=== PATIENT | male | born 1995 | race African-American/Black ===

== ENCOUNTER 2025-05-29 04:39 | Observation (INO) | payer OTHER, SELFPAY ==
[2025-05-29] VITALS (16 sets, daily range): BP systolic 98–169; BP diastolic 56–112; BMI 25.9
--- NOTE | 2025-05-29 01:06 | ED.GENMED ---
History of Present Illness
<Nely Crawford MD, Resident - Last Filed: 05/29/25 02:52>
General
Chief Complaint: Abdominal Pain
Source: patient
Exam Limitations: none
Time Seen by Provider: 05/29/25 01:00
Nursing documentation reviewed up to this point in time: agreed with
History of Present Illness
History of Present Illness:
29-year-old M with no significant past medical history presents with acute right lower quadrant pain.
Patient states that around 5 PM tonight he started having abdominal pain in the right lower quadrant. He attributed it to gas/constipation and waited. However, pain continued to worsen over time, becoming severe by 10 PM. At that point, patient
began putting. Did not take anything for pain. Denies any hematemesis, denies any diarrhea. Denies any fevers chills at home. Denies any prior abdominal surgeries. Pain is localized in the right lower quadrant.Patient in severe pain on exam,
hyperventilating and clutching abdomen.
Past History
<Nely Crawford MD, Resident - Last Filed: 05/29/25 02:52>
Past History
ED Past Medical History: None
ED Past Surgical History: None
Review of Systems
<Nely Crawford MD, Resident - Last Filed: 05/29/25 02:52>
Review of Systems
All Other Systems: ROS reviewed and negative except as documented in HPI and ROS
Constitutional: Reports no symptoms
EENT: Reports no symptoms
Respiratory: Reports no symptoms
Cardiac: Reports no symptoms
ABD/GI: Reports abdominal pain, nausea and vomiting
: Reports no symptoms
Musculoskeletal: Reports no symptoms
Skin: Reports no symptoms
Neurological: Reports no symptoms
Psychiatric: Reports no symptoms
Phy Exam
<Nely Crawford MD, Resident - Last Filed: 05/29/25 02:52>
General Physical Exam
General Presentation: severe distress
General age: appears stated age
General Skin: warm and dry
General Habitus: normal
General Mental: alert
General Hydration: appears well hydrated
Cardiovascular Exam
Cardiovascular Exam: no edema and tachycardia
Pulmonary Exam
Pulmonary Exam: no stridor and no wheezing
Respiratory Effort: hyperventilation
Gastrointestinal Exam
Gastrointestinal Exam: non distended, guarding and tender (tender worst in RLQ but abd diffusely tender to light palpation )
Neurological Exam
Neurological Exam: alert
Musculoskeletal Exam
Musculoskeletal Exam: full ROM
Skin Exam
Skin Exam: normal color
Psychiatric Exam
Psychiatric Exam: agitated
Course
<Nely Crawford MD, Resident - Last Filed: 05/29/25 02:52>
Orders/Labs/Results
Orders:
Orders
05/29/25 01:03
0.9% Sodium Chloride 1000 ml [Nss] 1,000 ml IV BOLUS
HYDROmorphone [Dilaudid] 0.5 mg IV NOW STA
05/29/25 01:06
CT Abd/pelvis W Iv Cont Urgent
Comment:
Reason For Exam: RLQ pain
Ondansetron Injectable [Zofran] 4 mg IV NOW STA
05/29/25 01:30
Ketorolac [Toradol] 15 mg IV NOW STA
05/29/25 01:57
Complete Blood Count/With Diff Urgent
Comprehensive Metabolic Panel Urgent
05/29/25 02:51
Piperacillin/Tazo 4.5 Gram [Zosyn] 4.5 gram in 100 ml IV NOW
05/29/25 02:52
Consult Surgery [SURGICAL CONSULT] Urgent
Consulting Provider: Jarek Cruz
Was physician already notified: Yes
Reason for consult: appendicitis
05/29/25 Breakfast
NPO
Allow oral meds: No
Allow clear liquids: Sips of Clears
Abnormal Lab Results
05/29/25
01:57
WBC 12.8 H 10^3/uL
(4.8-10.8)
MPV 11.2 H fL
(7.4-10.4)
Absolute Neuts (auto) 11.8 H 10^3/uL
(1.4-6.5)
Absolute Lymphs (auto) 0.5 L 10^3/uL
(1.2-3.4)
Neutrophils % 92.3 H %
(42.2-75.2)
Lymphocytes % 3.6 L %
(20.5-51.1)
Glucose 158 H mg/dl
(70-99)
Albumin 5.2 H g/dl
(3.5-5.0)
05/29/25 01:57
05/29/25 01:57
Vital Signs
Initial and Last Documented VS:
Initial Vital Signs
Temp Pulse Resp BP Pulse Ox
97.6 F 80 28 98/70 100
05/29/25 00:54 05/29/25 00:54 05/29/25 00:54 05/29/25 00:54 05/29/25 00:54
Last Documented Vital Signs
Temp Pulse Resp BP Pulse Ox
97.6 F 80 28 98/70 100
05/29/25 00:54 05/29/25 00:54 05/29/25 00:54 05/29/25 00:54 05/29/25 01:15
<Krissy Yeager, DO - Last Filed: 05/29/25 02:53>
Orders/Labs/Results
Orders:
Orders
05/29/25 01:03
0.9% Sodium Chloride 1000 ml [Nss] 1,000 ml IV BOLUS
HYDROmorphone [Dilaudid] 0.5 mg IV NOW STA
05/29/25 01:06
CT Abd/pelvis W Iv Cont Urgent
Comment:
Reason For Exam: RLQ pain
Ondansetron Injectable [Zofran] 4 mg IV NOW STA
05/29/25 01:30
Ketorolac [Toradol] 15 mg IV NOW STA
05/29/25 01:57
Complete Blood Count/With Diff Urgent
Comprehensive Metabolic Panel Urgent
05/29/25 02:51
Piperacillin/Tazo 4.5 Gram [Zosyn] 4.5 gram in 100 ml IV NOW
05/29/25 02:52
Consult Surgery [SURGICAL CONSULT] Urgent
Consulting Provider: Jarek Cruz
Was physician already notified: Yes
Reason for consult: appendicitis
05/29/25 Breakfast
NPO
Allow oral meds: No
Allow clear liquids: Sips of Clears
Abnormal Lab Results
05/29/25
01:57
WBC 12.8 H 10^3/uL
(4.8-10.8)
MPV 11.2 H fL
(7.4-10.4)
Absolute Neuts (auto) 11.8 H 10^3/uL
(1.4-6.5)
Absolute Lymphs (auto) 0.5 L 10^3/uL
(1.2-3.4)
Neutrophils % 92.3 H %
(42.2-75.2)
Lymphocytes % 3.6 L %
(20.5-51.1)
Glucose 158 H mg/dl
(70-99)
Albumin 5.2 H g/dl
(3.5-5.0)
05/29/25 01:57
05/29/25 01:57
Vital Signs
Initial and Last Documented VS:
Initial Vital Signs
Temp Pulse Resp BP Pulse Ox
97.6 F 80 28 98/70 100
05/29/25 00:54 05/29/25 00:54 05/29/25 00:54 05/29/25 00:54 05/29/25 00:54
Last Documented Vital Signs
Temp Pulse Resp BP Pulse Ox
97.6 F 80 28 98/70 100
05/29/25 00:54 05/29/25 00:54 05/29/25 00:54 05/29/25 00:54 05/29/25 01:15
<Nely Crawford MD, Resident - Last Filed: 05/29/25 02:52>
MDM/Problems Addressed
Differential Diagnosis Includes:
Presentation most concerning for acute appendicitis
Potential for rupture, given abrupt worsening of patient's pain accompanied by emesis after more moderate pain preceding, mild guarding on exam, patient in severe distress
However, patient hemodynamically stable, may be contained/unruptured
Differential also includes:
Acute SBO/volvulus, less likely given abdomen not distended on exam
Pancreatitis, less likely given lower abdomen localization rather than upper abdomen without radiation to the back
Cholecystitis, less likely given localization to lower right quadrant
Perforated stercoral colitis, unlikely given lack of preceding history of constipation
MDM/Problems Addressed:
-CBC, CMP
-IVF bolus
-NPO
-Analgesia (IV toradol 15mg)
-Zofran [address] abdomen/pelvis with IV contrast
<Nely Crawford MD, Resident - Last Filed: 05/29/25 02:52>
*Pulse Oximetry
SaO2: 100
Patient hypoxic: no
*Critical Care Note
Total Time (30-74mins, 75-104mins- exclusive of procedures): Not Applicable
<Nely Crawford MD, Resident - Last Filed: 05/29/25 02:52>
Update Note
Update Note:
Leukocytosis 12.8 WBC
2:45am
CT ap with acute appendicitis with appendicolith
Will start Zosyn & admit to surgery service
ED Attending Note
<Nely Crawford MD, Resident - Last Filed: 05/29/25 02:52>
-
Portions of this chart may have been created with voice recognition software.� Occasional wrong word or��sound alike� substitutions may have occurred due to the inherent limitations of voice recognition software.
<Krissy Yeager DO - Last Filed: 05/29/25 02:53>
ED Attending Note
Patient seen and examined by attending physician: Yes
I performed the substantive portion of visit, reviewed & personally made and approve the management plan that is documented in note by myself or ELA.: Yes
I performed a history and physical exam of patient and discussed management with resident, I reviewed resident's note and agree with documented findings and plan of care.: Yes
ED Attending Note:
29-year-old male without significant past medical history presenting for acute onset of abdominal pain. Patient reports a few hours prior to arrival, started to have right lower quadrant abdominal pain with associated nausea and vomiting. Reports
being in his usual state of health prior to the symptoms. Denies any surgical history. Denies fever or sick contacts. Denies any diarrhea. Denies any marijuana use. Vital signs are normal.
On exam, patient is in no acute distress, however slightly uncomfortable secondary to his symptoms. On abdominal exam, focal right lower quadrant tenderness to the abdomen with primary concern for acute appendicitis. Plan for laboratory analysis
and CT abdominal imaging. Will treat with IV fluids and Toradol as well as Zofran and reassess
02:50 -patient's labs significant for leukocytosis. CT consistent with acute appendicitis. Did discuss with surgery. Antibiotics ordered. Plan for admission
Discharge Plan
Departure
Patient Disposition: Admit
Date of Disposition: 05/29/25
Time of Disposition: 02:50
Admit to: Med/Surg
Admit to doctor: Anthony
Presentation/result/management discussed w/ accepting MD/DO: General surgery
Patient with high blood pressure during this ER visit?: No
Condition: Fair
Covid-19: Not Applicable
Discharge Problem:
Acute appendicitis
Referrals:
NONE,* [Family Provider, Internal Medicine]
Interventions
Interventions:
*Risk Screen - Suicide Last Done: 05/29/25 01:44
*General Assessment Last Done: 05/29/25 01:44
*Neglect/Abuse Screening Last Done: 05/29/25 01:44
*ED COVID-19 Vaccine History Last Done: 05/29/25 01:44
*ED Influenza Vaccine History Last Done: 05/29/25 01:44
[facility] Fall Risk Assessment Tool Last Done: 05/29/25 00:52
RT-Gpezsw-[id number] Assessment Last Done: 05/29/25 01:46
Discharge Date and Time
Print Language: LAO
[2025-05-29] MEDS: ZOFRAN 4 MG IV ×2 (01:48→06:06)
[2025-05-29] MEDS: NSS 1000 IV ×2 (01:49→05:09)
[2025-05-29] MEDS: TORADOL 15 MG IV (01:53)
[2025-05-29 02:03] LABS: Hematocrit 45.3 % (39.0-52.0); Hemoglobin 15.5 g/dL (13.0-18.0); Mean Corp Hgb Conc. 34.2 g/dL (33.0-37.0); Mean Corpuscular Volume 87.6 fL (80.0-94.0); Nucleated Red Blood Cells % 0 % (-); Platelet Count 154 10^3/uL (130-400); Red Cell Dist. Width 12.2 % (11.5-14.5)
[2025-05-29 02:35] LABS: ALT (SGPT) 23 U/L (0-50); AST (SGOT) 33 U/L (17-59); Albumin 5.2 g/dl (3.5-5.0); Alkaline Phosphatase 65 U/L (38-126); Blood Urea Nitrogen 15 mg/dl (9-20); Calcium 9.9 mg/dl (8.4-10.2); Carbon Dioxide 27 mmol/L (22-30); Chloride 98 mmol/L (98-107); Estimated Creatinine Clearance 117 ml/min; Glucose 158 mg/dl (70-99); Potassium 4.0 mmol/L (3.5-5.1); Sodium 137 mmol/L (135-145); Total Protein 8.2 g/dl (6.3-8.2); eGFR > 60.00
[2025-05-29] MEDS: ZOSYN 100 IV (03:28)
[2025-05-29] MEDS: MORPHINE SULFATE 4 MG IV (04:07)
--- NOTE | 2025-05-29 04:33 | HPS.HSE ---
Family Physician
-
Family Physician: * NONE
Chief Complaint
-
'Abdomen pain'
History of Present Illness
29 year old patient presents to ER as he developed 'weird' abdomen pain at RLQ started after dinner, felt like he wanted to move his bowels took Miralax, felt nauseous afterwards, vomited food particles then some yellow liquid, then late he was dry
heaving. Last BM 05/28 normal stool. Voiding without difficulty. No blood noted in stool or emesis. states he had chills no fever, Denies chest pain, shortness of breath.
Medical History
Past Medical History
Past Medical History: Reports None
Additional Past Medical History:
seasonal allergies
Past Surgical History: Reports None
Social History
Tobacco: Non-smoker
Alcohol: None
Drug: None
Living: With Family
Family History
Family History: Not pertinent
Allergies / Home Medications
Allergies reflects when Allergies were last updated in [employer].
Home Medications with original date entered in [employer]
Allergy/Medication List:
Allergies
Allergy/AdvReac Type Severity Reaction Status Date / Time
No Known Allergies Allergy Verified 05/29/25 00:57
Review of Systems
-
History Source: Patient
A 12 point ROS was completed and negative except as noted: Yes
Constitutional: Reports No Symptoms
EENT: Reports No Symptoms
Respiratory: Reports No Symptoms
Cardiac: Reports No Symptoms
Abdomen/GI: Reports Abdominal Pain and Nausea
: Reports No Symptoms
Musculoskeletal: Reports No Symptoms
Skin: Reports No Symptoms
Neurological: Reports No Symptoms
Endocrine: Reports No Symptoms
Hematologic/Lymphatic: Reports No Symptoms
Psych: Reports No Symptoms
Physical Exam
Vital Signs
Vital Signs
Temp Pulse Resp BP Pulse Ox
97.6 F 87 18 169/79 97
05/29/25 00:54 05/29/25 04:10 05/29/25 04:10 05/29/25 04:06 05/29/25 04:08
Physical Exam
General: Well Developed, Well Nourished and No Apparent Distress
HEENT: NormoCephalic, Moist mucous membranes and Atraumatic
Respiratory: Clear and Non Labored Respirations
Cardiac: S1/S2, Regular Rhythm and Rub
GI: Soft, Normal Bowel Sounds and Tender
Rectal: Deferred by Provider
Genito-urinary: No costovertebral tender
Musculoskeletal: No Clubbing, No Cyanosis and No Edema
Skin: Warm and Dry
Neuro: Awake, AO x 3 and Nonfocal/grossly intact
Hematologic/Lymphatic: No Lymphadenopathy
Psych: Calm and Intact Judgment/Insight
Laboratory Results
-
05/29/25 01:57
05/29/25 01:57
Laboratory Results
Total Bilirubin 0.8 mg/dl (0.2-1.3) 05/29/25 01:57
AST 33 U/L (17-59) 05/29/25 01:57
ALT 23 U/L (0-50) 05/29/25 01:57
Alkaline Phosphatase 65 U/L (38-126) 05/29/25 01:57
Data Reviewed
-
CT Scan: Report Reviewed by me
Lab Data: Labs Reviewed by me
Impression/Plan
-
29 year old patient with abdomen pain
Abdomen pain likely due to Appendicitis
CT abdomen CT consistent with acute appendicitis.
WBC 12.8
Continue IV Zosyn
Continue IV pain meds
Continue IV Zofran
NPO IVF
Admit to Medsurg
Admit to Dr. Cruz
SCD's
Full code
--- NOTE | 2025-05-29 07:51 | HPS.HSE ---
Family Physician
-
Family Physician: * NONE
Chief Complaint
-
Abdominal pain
History of Present Illness
Patient is a 29 yo M with no pertinent PMH who presents with 12 to 24 hours of RLQ abdominal pain. Johnathon states that his symptoms began yesterday evening. Acute onset of presentation; reports feeling well prior to his symptoms. Describes a
generalized abdominal pain which is localized to the RLQ. Pain has not improved. Associated nausea and vomiting. No fevers or chills. No GI symptoms. No chronic GI issues. Family history unremarkable.
Medical History
Past Medical History
Past Medical History: Reports None
Past Surgical History: Reports None
Social History
Tobacco: Non-smoker
Alcohol: None
Drug: None
Family History
Family History: Not pertinent
Allergies / Home Medications
Allergies reflects when Allergies were last updated in [employer].
Home Medications with original date entered in [employer]
Allergy/Medication List:
nKDA
Review of Systems
-
A 12 point ROS was completed and negative except as noted: Yes
Physical Exam
Vital Signs
Vital Signs
Temp Pulse Resp BP Pulse Ox
97.6 F 87 18 163/88 99
05/29/25 00:54 05/29/25 04:10 05/29/25 04:10 05/29/25 06:43 05/29/25 07:32
Physical Exam
General: Well Developed, Well Nourished and Pain
HEENT: NormoCephalic and Anicteric
Respiratory: Non Labored Respirations
Cardiac: Regular Rhythm
GI: Soft, Non Distended, Tender (RLQ) and Other (No diffuse peritonitis)
Musculoskeletal: No Edema
Skin: Warm and Dry
Neuro: Nonfocal/grossly intact
Laboratory Results
-
05/29/25 01:57
05/29/25 01:57
Laboratory Results
Total Bilirubin 0.8 mg/dl (0.2-1.3) 05/29/25 01:57
AST 33 U/L (17-59) 05/29/25 01:57
ALT 23 U/L (0-50) 05/29/25 01:57
Alkaline Phosphatase 65 U/L (38-126) 05/29/25 01:57
Data Reviewed
-
CT Scan: Image Personally Visualized and interpreted and Report Reviewed by me
Lab Data: Labs Reviewed by me
Impression/Plan
-
IMPRESSION:
Patient is a 29 yo M p/w acute appendicitis
The natural history and pathophysiology of appendicitis was discussed. Anatomy was reviewed. CT scan imaging as relates to his appendix was reviewed. Options for management including medical management with antibiotics versus surgical management
with appendectomy were considered and discussed. The pros and cons of both approaches was discussed. Specifically, we discussed failure of medical management and future episodes of appendicitis versus surgical risks. Recommend and plan for
appendectomy.
Plan for a laparoscopic appendectomy. The procedure itself, as well as the risks, benefits, and alternatives was discussed. Specifically, we discussed the risks of bleeding, infection, injury to surrounding structures (bowel, bladder), staple line
leak, need for open procedure. Typical postprocedural recovery was discussed. Specifically, we discussed activity restrictions and time off from work. All questions answered. Consent signed.
PLAN:
-- Laparoscopic appendectomy
-- NPO, IVF
-- Abx: Zosyn
-- Pain control: Tylenol and IV Dilaudid PRN
--- NOTE | 2025-05-29 07:56 | W.SUR.PREOP ---
Pre-Operative Surgical Note
-
I have examined this patient prior to the performance of the scheduled procedure.
The patient's condition is unchanged from the time of the current History and
Physical and the patient is able to undergo the scheduled procedure.
[2025-05-29] MEDS: DILAUDID 0.5 MG IV (08:07)
--- NOTE | 2025-05-29 12:00 | W.IMMPOSTOP ---
Surgical Immed Post Op Note
-
Primary Surgeon: Anthony
Assisting Surgeon: None
Pre-op Diagnosis: Acute appendicitis
Post-op Diagnosis: Acute appendicitis
Procedure Performed: Laparoscopic appendectomy
Anesthesia Type: General
Specimen / Cultures:
1. Appendix
Estimated Blood Loss: 3 cc
Complications: None
Operative Findings:
1. Acutely inflamed dialed appendix, healthy base, retrocecal position
2. Base taken with ortiz load stapler, mesentery with Ligasure device
== END 2025-05-29 14:50 | disposition home or self-care (01) ==
LOC: PACUI 04:39
PROVIDERS: ADMITTING PHYSICIAN Surgery; EMERGENCY PHYSICIAN Student in an Organized Health Care Education/Training Program
DX: K35.80 Unspecified acute appendicitis (principal); K38.1 Appendicular concretions; R06.4 Hyperventilation
CPT/HCPCS: 44970; 74177; 80053; 85025; 88304; 96361; 96365; 96375; 99285; G0378; Q9967